=== PATIENT | female | born 1965 | race Caucasian/White ===

== ENCOUNTER 2017-01-16 18:07 | Emergency (ER) | payer BC ==
[2017-01-16 19:39] VITALS: BP 128/82
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
== END 2017-01-16 20:14 | disposition home or self-care (01) ==
LOC: UCCORT 18:07
DX: M54.5 Low back pain (principal); F17.210 Nicotine dependence, cigarettes, uncomplicated
CPT/HCPCS: 99212; G0463

== ENCOUNTER 2019-05-27 19:56 | Emergency (ER) | payer BC, OTHER ==
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
[2019-05-27 20:27] VITALS: BP 111/83
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
[2019-05-27] MEDS ORDERED: Ibuprofen TAB* 400 MG PO ONE (21:17)
--- NOTE | 2019-05-28 13:36 | UC ---
- Progress Note Progress Note: Final x-ray report reviewed: X-ray of the right rib/chest: IMPRESSION: NO DISPLACED RIB FRACTURE OR PNEUMOTHORAX. X-rays of the nasal bones: NO ACUTE OSSEOUS INJURY. IF SYMPTOMS PERSIST, RECOMMEND REPEAT IMAGING. Wet read read as possible nondisplaced fracture of the sixth rib. RN to call the patient and inform her of the results and follow up with primary care doctor. Course/Dx - Diagnoses Provider Diagnoses: Nasal injury, Rib pain on right side, Rib contusion Discharge ED - Sign-Out/Discharge Documenting (check all that apply): Post-Discharge Follow Up All imaging exams completed and their final reports reviewed: Yes - Discharge Plan Condition: Stable Disposition: HOME Patient Education Materials: Rib Contusion (ED) Referrals: Christi Beckman NP [Primary Care Provider] - 3 Days Additional Instructions: 1-Please take ibuprofen PO q6-8hrs prn as instructed after meals to alleviate pain and swelling. rest and avoid strenuous exercise or heavy lifting 2-Please use the Incentive Spirometry as the Nurse explained to improve lung function 3-If symptoms do not improve or worsen please f/u w/ your PCP in 3 days for further evaluation and treatment. 4- Fianl radiology report will be done tomorrow morning, you will be noticed of any abnormality for further management. - Billing Disposition and Condition Condition: STABLE Disposition: Home
== END 2019-05-27 22:24 | disposition home or self-care (01) ==
LOC: UCCORT 19:56
DX: S09.92XA Unspecified injury of nose, initial encounter (principal); S20.222A Contusion of left back wall of thorax, initial encounter; V49.49XA Driver injured in collision with other motor vehicles in traffic accident, initial encounter; Y92.410 Unspecified street and highway as the place of occurrence of the external cause; Z72.0 Tobacco use
CPT/HCPCS: 70160; 99212; A9270-GY; G0463